=== PATIENT | male | born 1995 | race Caucasian/White ===

== ENCOUNTER 2024-07-03 13:15 | Emergency (ER) | payer OTHER, SELFPAY ==
--- NOTE | ~2024-07-03 | CT_ITS ---
EXAMINATION: CT abdomen pelvis w con DATE: 07/03/2024 14:53 INDICATION: Right lower quadrant abdominal pain TECHNIQUE: Computed tomography (CT) of the abdomen and pelvis was performed with 100 CC Omnipaque 350 intravenous contrast. Automated exposure control and iterative reconstruction technique were employe d. Exam dose: 525.59 mGy-cm total exam DLP. COMPARISON: None. FINDINGS: The lung bases are clear. Normal heart size. No pericardial or pleural effusion. The liver, gallbladder, bile ducts, pancreas, pancreatic duct and spleen appear normal. Normal morphology of the adrenal glands. No renal mass lesion or urinary tract calculus or hydroureteronephrosis. Urinary bladder is evacuated . The prostate gland and seminal vesicles are unremarkable. Normal caliber of the abdominal aorta. No intraperitoneal or retroperitoneal or pelvic mass lesion or adenopathy or ascites. Normal appendix. No bowel obstruction or intraperitoneal free air. Very small fat-containing umbilical hernia. Included skeletal structures are unremarkable. IMPRESSION: Normal appendix; no significant abnormality Reviewed, dictated and finalized at [facility]. Reviewed, dictated and finalized at [facility].
[2024-07-03 13:17] VITALS: BP 126/80; PULSE 64; RESP 16; TEMP 36.3; O2SAT 100
[2024-07-03 14:25] LABS: Basophils Absolute Auto 0.1 K/mm3 (0.0-0.1); Basophils Percent Auto 1.1 % (0.2-1.2); Eosinophils Absolute Auto 0.2 K/mm3 (0-0.3); Eosinophils Percent Auto 4.1 % (0-4.4); Hematocrit 44.5 % (42.0-52.0); Immature Granulocyte Absolute 0.03 K/mm3 (0.00-0.031); Immature Granulocyte Percent A 0.5 % (0-0.5); Lymphocytes Absolute Auto 1.63 K/mm3 (0.9-3.2); Mean Corpuscular Hemoglobin 28.7 pg (26-34); Mean Corpuscular Volume 79.9 fl (80-100); Mean Platelet Volume 10.5 fl (7.4-10.4); Monocytes Absolute Auto 0.6 K/mm3 (0.1-0.6); Neutrophils Absolute Auto 3.1 K/mm3 (1.3-6.7); Neutrophils Percent Auto 55.3 % (45.5-73.1); Platelet Count Result 241 k/mm3 (150-375); Red Blood Count 5.57 M/mm3 (4.6-6.20); Red Cell Distribution Width 12.6 % (11.5-14.5); White Blood Count 5.6 K/mm3 (4.5-10.0)
[2024-07-03 14:34] LABS: Alanine Aminotransferase 53 U/L (6-50); Albumin Level 4.8 g/dL (3.5-5.1); Alkaline Phosphatase 57 U/L (38-126); Anion Gap 10 mmol/L (4-12); Aspartate Amino Transferase 36 U/L (17-59); Bilirubin,Total 1.1 mg/dL (0.2-1.3); Blood Urea Nitrogen 16 mg/dL (9-20); Calcium 10.4 mg/dL (8.4-10.2); Carbon Dioxide 28 mmol/L (22-30); Chloride 99 mmol/L (98-107); Estimated CRCL calculation 90 ml/min; Estimated Glomerular Filt Rate > 60; Glucose 89 mg/dL (65-110); Lipase 34 U/L (23-300); Potassium 4.1 mmol/L (3.4-5.0); Sodium 137 mmol/L (137-145)
--- NOTE | 2024-07-03 15:10 | ED.ABDPAIN ---
HPI - Abdominal Pain General Chief Complaint: Abdominal Pain Stated Complaint: abd painj ` Time Seen by Provider: 07/03/24 14:03 History of Present Illness HPI narrative: Patient is a 29-year-old male who presents to the emergency department this afternoon complaining of mid abdominal and right lower quadrant abdominal pain which has been ongoing for the past 2-3 days. Patient states that initially the pain only lasted a few minutes and subsided but today he had the pain all day. Patient states that he has not had an appetite all day but he yesterday and the day before he noticed that the pain is worse after he eats. Denies any history of previous abdominal surgeries. Denies any nausea or vomiting and denies any urinary symptoms including dysuria or hematuria. No additional symptoms or concerns at this time. Related Data Home Medications Medication Instructions Recorded Confirmed No Home Medications 07/03/24 07/03/24 Allergies Allergy/AdvReac Type Severity Reaction Status Date / Time No Known Allergies Allergy Verified 07/03/24 13:18 Review of Systems Review of Systems: All systems are reviewed and are negative unless stated otherwise in the HPI. Exam Narrative: General: Alert, awake, afebrile, in no acute distress. HEENT: PERRL, no rhinorrhea, no post nasal drip, oropharynx clear. Cardiovascular: Regular rate and rhythm, no murmurs, rubs or gallops, no peripheral edema. Respiratory: Clear to auscultation bilaterally, no tachypnea, no wheezing, no rhonchi, no rubs, no respiratory distress. Abdomen: Soft, no tenderness to palpation over all 4 quadrants, negative McBurney, nondistended, no rebound, no guarding, no peritoneal signs. Musculoskeletal: No joint swelling or deformity, normal muscle tone. Skin: No rashes or petechia, no signs of infection. Neurological: Alert and oriented to person, place, and time. Follows all commands. No focal deficits, speech is clear and fluent. Course Vital Signs Vital signs: Vital Signs Temperature 97.4 F L 07/03/24 13:17 Pulse Rate 64 07/03/24 13:17 Respiratory Rate 16 07/03/24 13:17 Blood Pressure 126/80 07/03/24 13:17 Pulse Oximetry 100 07/03/24 13:17 Temperature 97.4 F L 07/03/24 13:17 Pulse Rate 64 07/03/24 13:17 Respiratory Rate 16 07/03/24 13:17 Blood Pressure 126/80 07/03/24 13:17 Pulse Oximetry 100 07/03/24 13:17 MDM - Abdominal Pain MDM Narrative Medical decision making narrative: The patient was evaluated by myself in the emergency department. History is obtained from patient who is an independent historian and physical exam was performed. External medical records were reviewed at this time. IV was established and pertinent tests were ordered. Laboratory results obtained revealing no acute process. Imaging studies obtained included CT abdomen pelvis with IV contrast which was independently interpreted by me revealing no acute process, which is pending final radiology interpretation. Differential diagnosis considerations include gastritis, cholecystitis, nephrolithiasis, appendicitis and pancreatitis. Comorbidities impacting this visit include none. I have evaluated and discussed social determinants of health with the patient that could potentially impact subsequent diagnosis and treatment plans. On repeat assessment of the patient, reevaluation revealed that the patient is doing well and is in no acute distress. Patient symptoms have improved since he arrived to our emergency department. Repeat vital signs were all reviewed and noted to be stable. Differential diagnosis and treatment plan were discussed with the patient at bedside. Patient agrees with discussion and after shared medical decision making agrees with discharge. All questions were answered to the patient's satisfaction. Patient will follow up with his PCP in 3-5 days. Patient was provided with strict return precautions and instructed to return t
[2024-07-03 15:57] VITALS: BP 123/72; PULSE 61; RESP 18; TEMP 36.6; O2SAT 99
== END 2024-07-03 15:59 | disposition home or self-care (01) ==
PROVIDERS: Emergency Provider Emergency Medicine
DX: R10.31 Right lower quadrant pain (principal)
CPT/HCPCS: 36415; 74177; 80053; 83690; 85025; 99284; Q9967

== ENCOUNTER 2025-05-06 18:32 | Emergency (ER) | payer OTHER, BC, SELFPAY ==
--- NOTE | ~2025-05-06 | XR_ITS ---
EXAMINATION: XR ankle RT min 3V, XR foot RT min 3V DATE: 05/06/2025 19:04 INDICATION: Diffuse right foot and ankle pain post fall TECHNIQUE: 1. Anteroposterior, mortise, additional oblique and lateral view of the right ankle were obtained. 2. Dorsoplantar, two oblique and lateral views of the right foot were obtained. COMPARISON: None. FINDINGS: Alignment of the right foot and ankle is normal. No fracture. Joint spaces are well maintained. No an kle joint effusion. The soft tissues are unremarkable. IMPRESSION: 1. Negative right foot and ankle radiographs. Reviewed, dictated and finalized at [facility]. IMPRESSION: 1. Negative right foot and ankle radiographs.
[2025-05-06 18:45] VITALS: BP 155/86; PULSE 77; RESP 18; TEMP 37; O2SAT 100
--- NOTE | 2025-05-06 18:55 | ED.LOWEXIN ---
HPI - Extremity Injury (Lower) General Chief Complaint: Extremity Injury, Lower Stated Complaint: rt foot injury Time Seen by Provider: 05/06/25 18:40 Source: patient and RN notes reviewed Mode of arrival: ambulatory Limitations: no limitations History of Present Illness HPI Narrative: 30-year-old male Presents Express Care complaining of injury to right foot/ankle. Patient reports cannot a vehicle on a sling to drive a when he rolled his right ankle heard a pop in his right foot filled the ground. Patient denies any loss of consciousness, and he is head, neck pain, or back pain. Patient does report having abrasion to his right forearm but denies any pain in his right former elbow. Patient is able to bear weight however he states that is very painful. Patient's has been using ice prior to arrival. To the injury occurred approximately 4 hours ago. Patient denies any numbness, tingling or any other injuries. Patient denies any significant past medical history. Related Data Home Medications ?Medication ?Instructions ?Recorded ?Confirmed ?Last Taken ?Type No Home Medications 07/03/24 05/06/25 Unknown History Allergies Allergy/AdvReac Type Severity Reaction Status Date / Time No Known Allergies Allergy Verified 05/06/25 18:38 Review of Systems Review of Systems: CONSTITUTIONAL: Denies fever, chills, or sweats. EYES: Denies visual changes, redness, or discharge. ENT: Denies rhinorrhea, congestion, sore throat, or otalgia. CARDIOVASCULAR: Denies chest pain, palpitations, or edema. RESPIRATORY: Denies cough or dyspnea. GASTROINTESTINAL: Denies abdominal pain, nausea, vomiting, or diarrhea. GENITOURINARY: Denies dysuria or hematuria. SKIN: Denies rash, wound, or itching. MUSCULOSKELETAL: Denies back pain, joint pain, or myalgia. Positive for right foot/ankle injury and right foot swelling NEUROLOGIC: Denies headache, numbness, or weakness. PSYCHIATRIC: Denies anxiety or depression. All other systems reviewed are negative, except as documented in HPI. PMFSH Comments At the time of my signature, I reviewed and agree with the nursing past medical, surgical, social, and family history. There is no relevant family history pertinent to the patient complaint. Exam Narrative: GENERAL: This is a well-nourished, well-developed adult, in no apparent distress. They are non ill-appearing, nontoxic appearing. HEAD: normocephalic, atraumatic. EYES: Sclera clear/white. Vision is grossly intact. Conjunctiva normal. Extraocular movement intact. EARS: External ears normal Hearing grossly intact. NOSE: External nose normal THROAT: Mucous membranes moist NECK: Neck supple CARDIOVASCULAR: Regular rate and rhythm RESPIRATORY: Respiratory rate normal, respiratory effort nonlabored, no respiratory distress NEURO: awake, alert, and oriented to person, place and time. There were no obvious focal neurologic abnormalities. EXTREMITIES: Right ankle/foot: No obvious deformity. There is swelling and slight bruising to the dorsal surface of the mid proximal foot. There is tenderness to palpation throughout the dorsal surface of the foot. No plantar tenderness to palpation. No obvious swelling to the ankle. No tenderness medial and lateral ankle. Achilles palpable and nontender. Negative Atwood's test. Ankle nontender through full range of motion. Capillary refill less than 3 seconds. Right pedal Pulse 2 +palpable. Normal sensation. Neurovascular status intact distal injury. Patient lower goes toes. Right forearm: Abrasion to proximal posterior forearm. No bony tenderness. No obvious deformity, bruising, swelling or redness. Normal range of motion of forearm. Neurovascular status intact distal injury. BACK: Nontender without deformity. Course Course Emergency Course: Portions of this record may have been created with voice recognition software Level of Care: Express Care Visit Vital Signs Vital signs: Vital Signs Temperature 98.6 F 05/06/25 18:45 Pulse Rate 77 05/06/25 18:45 Respiratory Rate 18 05/06/25 18:45 Blood Pressure 155/86 H 05/06/25 18:45 Pulse Oximetry 100 05/06/25 18:45 Oxygen Delivery Room Air 05/06/25 18:45 Temperature 98.6 F 05/06/25 18:45 Pulse Rate 77 05/06/25 18:45 Respiratory Rate 18 05/06/25 18:45 Blood Pressure 155/86 H 05/06/25 18:45 Pulse Oximetry 100 05/06/25 18:45 Oxygen Delivery Room Air 05/06/25 18:45 Reviewed MDM - Extremity Injury (Lower) MDM Narrative Medical decision making narrative: X-ray of right ankle and foot shows no evidence of fracture or acute findings. Likely patient has a foot sprain. Patient given Phan wrap for compression. Negative Atwood's test. Patient have a hard time bearing weight on right foot. Patient given crutches for the meantime. Advised follow-up with orthopedist if pain persists. Discussed physical exam findings. Advised supportive measures and signs/symptoms to go to the ER. Pt is appropriate for outpt treatment and f/u. Differential Diagnosis Differential diagnosis: Likely ankle sprain and strain, fracture of toe, ankle fracture and other (Foot fracture, foot sprain, tendon rupture) Critical Care Time Critical Care Time Critical Care Time: No Discharge Plan Discharge Clinical Impression: Injury of foot, right Qualifiers: Encounter type: initial encounter Qualified Code(s): S99.921A - Unspecified injury of right foot, initial encounter Patient Disposition: Home Condition: Stable Instructions: Foot Sprain (ED) Additional Instructions: The x-ray of your right foot and ankle are negative for any fractures or acute findings. Rest and elevate the leg; bear weight as tolerated. Use crutches as needed Apply ice 15-20 minute intervals several times a day Keep it wrapped with PHAN or use a soft ankle splint Motrin 600mg -800mg every 6 to 8 hours, alternate with Tylenol 1000mg every 6 to 8 hours as needed Follow up with your primary care provider or an orthopedist in 1-2 weeks. Patient Language: Syriac Prescriptions: No Action No Home Medications Follow-up/Referrals: Wilmer Moser MD [Physician] - PHYSICIAN,VENDING ATTENDANT [Primary Care Provider] - Stand Alone Forms: Work/School Release IP Time of Disposition: 20:26
== END 2025-05-06 20:37 | disposition home or self-care (01) ==
PROVIDERS: Referring Provider Emergency Medicine
DX: S99.921A Unspecified injury of right foot, initial encounter (principal); X50.9XXA Other and unspecified overexertion or strenuous movements or postures, initial encounter
CPT/HCPCS: 73610; 73630; 99213; G0463